=== PATIENT | female | born 1960 | race African-American/Black ===

== ENCOUNTER 2016-07-19 12:01 | Inpatient (IN) | payer OTHER ==
[~2016-07-19] VITALS: Ht 172.7 cm; Wt 59.0 kg
[2016-07-19 12:19] LABS: BASOPHILS # (AUTO) 0.1 /CMM (0.0-0.2); BASOPHILS % (AUTO) 1.4 % (0.0-2.0); DIFF TOTAL % 100 %; EOSINOPHILS % (AUTO) 0.3 % (0.0-6.0); HEMATOCRIT 47 % (33-45); HEMOGLOBIN 15.2 g/dL (11.5-14.8); LYMPHOCYTES # (AUTO) 2.3 /CMM (0.8-4.8); MEAN CORPUSCULAR HEMOGLOBIN 28 PG (26.0-33.0); MEAN CORPUSCULAR HGB CONC 32 g/dl (31.0-36.0); MEAN CORPUSCULAR VOLUME 88 fL (82-100); MONOCYTES # (AUTO) 0.6 /CMM (0.1-1.30); MONOCYTES % (AUTO) 7.3 % (2.0-12.0); NEUTROPHILS # (AUTO) 4.5 /CMM (1.8-8.9); PLATELET COUNT (AUTO) 244 /CMM (150-450); RED BLOOD CELL COUNT(AUTO) 5.38 MIL/uL (4.0-5.2); WHITE BLOOD COUNT (AUTO) 7.5 K/uL (4.3-11.0)
[2016-07-19 12:27] LABS: ANION GAP 11 (5-14); CALCIUM, SERUM 8.5 mg/dL (8.5-10.1); CARBON DIOXIDE 31 mmol/L (21-32); CHLORIDE 104 mmol/L (98-107); CREATININE 0.8 mg/dL (0.6-1.3); GFR 91 mL/min (>60); GLUCOSE 98 mg/dL (74-106); POTASSIUM 4.2 mmol/L (3.5-5.1); SODIUM SERUM 142 mmol/L (136-145); UREA NITROGEN, BLOOD 30 mg/dL (7-18)
[2016-07-19 12:33] LABS: CANNABINOID, URINE NEGATIVE (NEGATIVE); PHENCYCLIDINE SCREEN,URINE NEGATIVE (NEGATIVE)
[2016-07-19 13:15] LABS: ALANINE AMINOTRANSFERASE 31 U/L (12-78); ALBUMIN 3.7 g/dL (3.4-5.0); ASPARTATE AMINOTRANSFERASE 24 U/L (15-37); BILIRUBIN,TOTAL 0.2 mg/dL (0.2-1.0); TOTAL PROTEIN, SERUM 6.7 g/dL (6.4-8.2)
[2016-07-19 13:22] LABS: INDIRECT BILIRUBIN 0.2 mg/dL (0.0-1.1)
[2016-07-19 13:23] LABS: THYROID STIMULATING HORMONE 2.038 uIU/mL (0.358-3.74)
[2016-07-19 13:26] LABS: TROPONIN I < 0.010 ng/mL (0.00-0.056)
[2016-07-19] MEDS ORDERED: TRAZ-144 PO (13:52)
[2016-07-19] MEDS ORDERED: ARIP30TA PO (13:52)
[2016-07-19] MEDS ORDERED: LEVO75TA7 PO (13:52)
[2016-07-19] MEDS ORDERED: LORA1TAB PO (13:52)
[2016-07-19] MEDS ORDERED: BENZ1TAB7 PO (13:52)
[2016-07-19] MEDS ORDERED: ZIPR80CA2 PO (13:52)
[2016-07-19 14:15] VITALS: BP 140/71
[2016-07-19] MEDS ORDERED: MAGNESIUM HYDROXIDE 30 ML UDC PO PRN (15:00)
[2016-07-19] MEDS ORDERED: MAG HYDROX/AL HYDROX/SIMETH 30 ML UDC PO PRN (15:00)
[2016-07-19] MEDS ORDERED: LORAZEPAM 0.5 MG TABLET PO PRN (15:00)
[2016-07-19] MEDS ORDERED: ACETAMINOPHEN 325 MG TABLET PO PRN (15:00)
[2016-07-19 16:30] VITALS: BP 140/71
[2016-07-19 19:54] VITALS: BP 124/67
[2016-07-19] MEDS ORDERED: TEMAZEPAM 7.5 MG CAPSULE PO PRN (20:00)
[2016-07-20 07:12] LABS: ALBUMIN 3.4 g/dL (3.4-5.0); BILIRUBIN,TOTAL 0.4 mg/dL (0.2-1.0); CALCIUM, SERUM 8.6 mg/dL (8.5-10.1); CREATININE 0.9 mg/dL (0.6-1.3); TOTAL PROTEIN, SERUM 5.9 g/dL (6.4-8.2)
[2016-07-20] MEDS: LEVOTHYROXINE SODIUM 75 MCG TABLET PO SCH (07:30)
[2016-07-20 08:00] VITALS: BP 111/72
[2016-07-20 16:00] VITALS: BP 119/62
[2016-07-20] MEDS ORDERED: BENZTROPINE MESYLATE (1 MG) 1 MG TABLET PO PRN (16:30)
[2016-07-20] MEDS: risperiDONE 1 MG TABLET PO SCH (17:36)
[2016-07-20 20:00] VITALS: BP 104/69
[2016-07-20] MEDS: HALOPERIDOL 1 MG TABLET PO SCH (21:42)
[2016-07-21 08:12] VITALS: BP_SYST 117
[2016-07-21] MEDS: LEVOTHYROXINE SODIUM 75 MCG TABLET PO SCH (08:55)
[2016-07-21] MEDS: risperiDONE 1 MG TABLET PO SCH ×2 (08:55→16:52)
[2016-07-21 16:01] VITALS: BP 100/65
[2016-07-21 20:00] VITALS: BP 120/60
[2016-07-21] MEDS: HALOPERIDOL 1 MG TABLET PO SCH (21:11)
[2016-07-22 08:05] VITALS: BP 115/70
[2016-07-22] MEDS: risperiDONE 1 MG TABLET PO SCH ×2 (08:44→18:17)
[2016-07-22] MEDS: LEVOTHYROXINE SODIUM 75 MCG TABLET PO SCH (08:44)
[2016-07-22 16:16] VITALS: BP 106/63
[2016-07-22] MEDS: GUAIFENESIN/CODEINE 10 ML UDC PO PRN (18:17)
[2016-07-22 19:52] VITALS: BP 119/69
[2016-07-22] MEDS: HALOPERIDOL 1 MG TABLET PO SCH (21:26)
[2016-07-23] MEDS: LEVOTHYROXINE SODIUM 75 MCG TABLET PO SCH (07:30)
[2016-07-23 08:00] VITALS: BP 122/88
[2016-07-23 09:00] VITALS: BP 122/88
[2016-07-23] MEDS: risperiDONE 1 MG TABLET PO SCH ×2 (09:16→17:42)
[2016-07-23] MEDS: GUAIFENESIN/CODEINE 10 ML UDC PO PRN ×2 (15:10→21:05)
[2016-07-23 16:14] VITALS: BP_SYST 127; BP_SYST 130; BP_DIAS 84; BP_DIAS 90
[2016-07-23 20:03] VITALS: BP 133/60
[2016-07-23] MEDS: HALOPERIDOL 1 MG TABLET PO SCH (21:04)
[2016-07-24] MEDS: GUAIFENESIN/CODEINE 10 ML UDC PO PRN ×4 (06:09→22:37)
[2016-07-24 08:00] VITALS: BP 123/69
[2016-07-24] MEDS: LEVOTHYROXINE SODIUM 75 MCG TABLET PO SCH (08:42)
[2016-07-24] MEDS: risperiDONE 1 MG TABLET PO SCH ×2 (08:42→16:17)
[2016-07-24 16:00] VITALS: BP 124/69
[2016-07-24] MEDS ORDERED: HALOPERIDOL DECANOATE IM 100 MG/ML AMPUL IM ONE (16:00)
[2016-07-24 20:13] VITALS: BP 120/73
[2016-07-24] MEDS: HALOPERIDOL 1 MG TABLET PO SCH (22:00)
[2016-07-25 08:30] VITALS: BP 113/67
[2016-07-25] MEDS: LEVOTHYROXINE SODIUM 75 MCG TABLET PO SCH (08:33)
[2016-07-25] MEDS: risperiDONE 1 MG TABLET PO SCH ×2 (08:33→16:16)
[2016-07-25 16:00] VITALS: BP 117/72
[2016-07-25 20:10] VITALS: BP 115/66
[2016-07-25] MEDS: HALOPERIDOL 1 MG TABLET PO SCH (21:04)
[2016-07-26 08:00] VITALS: BP 141/79
[2016-07-26] MEDS: risperiDONE 1 MG TABLET PO SCH ×2 (08:11→16:18)
[2016-07-26] MEDS: LEVOTHYROXINE SODIUM 75 MCG TABLET PO SCH (08:11)
[2016-07-26 16:00] VITALS: BP 124/72
== END 2016-07-26 17:05 | disposition home or self-care (01) | DRG 885 ==
LOC: ER 12:11 → GPS 14:09
PROVIDERS: ADMIT Psychiatry & Neurology Psychiatry; ATTEND Internal Medicine
DX: F20.9 Schizophrenia, unspecified (principal); F03.90 Unspecified dementia, unspecified severity, without behavioral disturbance, psychotic disturbance, mood disturbance, and anxiety; E03.9 Hypothyroidism, unspecified; F29 Unspecified psychosis not due to a substance or known physiological condition; Z91.14 Patient's other noncompliance with medication regimen
CPT/HCPCS: 36415; 71010-TC; 80048-TC; 80053-TC; 80076-TC; 80305; 84443-TC; 84484-TC; 85025-TC; A4606; G0480; J1631; Z7610